=== PATIENT | male | born 1955 | race Caucasian/White ===

== ENCOUNTER 2018-01-08 19:59 | Emergency (ER) | payer BC, OTHER ==
[~2018-01-08] VITALS: Ht 170.2 cm; Wt 90.6 kg
[2018-01-08 20:02] VITALS: TEMP 36.9; Ht 170.2 cm; Wt 90.6 kg
--- NOTE | 2018-01-08 20:33 | EMERGENCY ROOM VISIT NOTE ---
ED Visit Note First contact with patient: 20:06 CHIEF COMPLAINT: Facial laceration HISTORY OF PRESENT ILLNESS: This 62-year-old male patient presents emergency department by private vehicle complaining of a laceration to the right forehead. Patient states that he was cleaning the kitchen floor when he stood up and struck his head on a light, states the glass shattered and cut him on the forehead. There was no loss of consciousness, vomiting, or unusual behavior afterwards. Denies neck pain. No headache, nausea, or blurred vision. There is minimal bleeding. The patient rates the pain as 0/10. The patient's tetanus shot is up to date. REVIEW OF SYSTEMS: A 6 system review of systems was completed with positives and pertinent negatives listed in the HPI. ALLERGIES: No known allergies. MEDICATIONS: No medications. PMH: No significant past medical or surgical history. SOCIAL HISTORY: Lives at home. He denies tobacco use. PHYSICAL EXAM: Vital Signs: Reviewed Nurse's notes, vital signs stable. GENERAL : Pleasant and cooperative, in no acute distress, well-developed, well- nourished. NEURO: The patient is alert and oriented to person place and time. No focal neurological defects. EYES: Pupils are round, equal, and react to light. EOMI. EARS: No hemotympanum. NECK: Supple. No cervical spine tenderness. FACE: No facial bone tenderness or mandibular tenderness. The mouth can open fully. The teeth are well aligned. No loose or chipped teeth. SKIN: There is a 1.5 cm laceration on the right forehead. The edges gape apart with traction. There is mild active bleeding. There is a small shard of glass noted in the wound. There are no deep structures present. Capillary refill less than two seconds. Normal sensation to light and sharp touch. EMERGENCY DEPARTMENT COURSE: I examined the patient. Verbal consent was obtained to perform the procedure. Using forceps, the shard of glass was easily removed from the wound, the wound was further explored and no other foreign body material was noted. Using sterile technique the wound was cleansed with Betadine. Patient was offered wound anesthesia prior to irrigation, he states the pain is tolerable and does not need any anesthesia. The wound was copiously irrigated under pressure with sterile saline. The wound was explored and was as described above. The wound edges approximate well and bleeding is easily controlled, therefore decision was made to close the laceration with Dermabond, applying 3 layers. The wound edges remained well approximated and hemostasis was achieved. The patient tolerated the procedure well. Patient was educated regarding wound care, follow-up, and return precautions, he verbalized understanding. The patient was discharged home in stable condition and ambulatory. Allergies Coded Allergies: No Known Allergies (Unverified Allergy, Mild, 12/03/05) Vital Signs Date Time Temp Pulse Resp B/P (MAP) Pulse Ox O2 Delivery O2 Flow Rate FiO2 01/08/18 20:41 56 18 136/83 98 Room Air 01/08/18 20:02 36.9 59 20 137/86 95 Room Air Departure Information Impression Primary Impression: Forehead laceration Dispostion Home / Self-Care Condition GOOD Patient Instructions ED Laceration Facial Skin Glue, [facility] [employer] [facility] Additional Instructions You were evaluated and treated in the emergency department for your head injury and facial laceration. The laceration was repaired using Dermabond (skin glue). The Dermabond should fall off naturally over the next 5-7 days. Do not pick at the glue, and do not apply ointments or lotions to the glue. You may wash over the area with soap and water, but do not scrub over the glued area. Pat dry after washing. Keep covered when in sun until the wound is fully healed, then SPF 50 or higher for one year. Vitamin E oil if desired two weeks after the glue has fallen off for reduction of scar. Please seek immediate medical attention for any signs of infection (increasing redness, swelling, pus drainage, streaking up the arm, fever/chills). Problem Qualifiers Primary Impression: Forehead laceration Encounter type: initial encounter Qualified Codes: S01.81XA - Laceration without foreign body of other part of head, initial encounter
[2018-01-08 20:41] VITALS: BP 136/83; PULSE 56; O2SAT 98
== END 2018-01-08 20:45 | disposition home or self-care (01) ==
LOC: C.EDB 20:00 → C.EDD 20:45
DX: S01.82XA Laceration with foreign body of other part of head, initial encounter (principal); W45.8XXA Other foreign body or object entering through skin, initial encounter; Y92.010 Kitchen of single-family (private) house as the place of occurrence of the external cause

== ENCOUNTER 2022-12-07 07:55 | Observation (INO) ==
--- NOTE | 2022-11-09 15:52 | PAT Medication Instructions ---
Medication Instructions Date of Service November 09, 2022 Home Medications allopurinol 100 mg tablet 100 mg PO QAM atenolol 50 mg tablet 50 mg PO QAM atorvastatin 20 mg tablet 20 mg PO QAM benazepril 40 mg tablet 40 mg PO QAM clonidine HCl 0.2 mg tablet 0.2 mg PO BID felodipine 10 mg tablet,extended release 24 hr 1 tab PO QAM glimepiride 1 mg tablet 1 mg PO QAM hydrochlorothiazide 25 mg tablet 25 mg PO BID metformin 500 mg tablet 500 mg PO BID sertraline 100 mg tablet 100 mg PO QAM DO NOT take the morning of surgery benazepril 40 mg tablet 40 mg PO QAM glimepiride 1 mg tablet 1 mg PO QAM hydrochlorothiazide 25 mg tablet 25 mg PO BID metformin 500 mg tablet 500 mg PO BID Take morning of surgery With a small sip of water, OTHERWISE NOTHING TO EAT OR DRINK AFTER MIDNIGHT: allopurinol 100 mg tablet 100 mg PO QAM atenolol 50 mg tablet 50 mg PO QAM atorvastatin 20 mg tablet 20 mg PO QAM clonidine HCl 0.2 mg tablet 0.2 mg PO BID felodipine 10 mg tablet,extended release 24 hr 1 tab PO QAM sertraline 100 mg tablet 100 mg PO QAM Take evening before surgery clonidine HCl 0.2 mg tablet 0.2 mg PO BID hydrochlorothiazide 25 mg tablet 25 mg PO BID metformin 500 mg tablet 500 mg PO BID Other Notes If you have any questions please call us at [phone] or [phone] or [phone] or [phone]
--- NOTE | 2022-11-10 14:12 | Anesthesiology Consultation ---
Date of Service November 10, 2022 Assessment & Plan (1) Encounter for pre-operative examination: - check BSG am DOS. - Case discussed in detail with Dr. Steward including pre-op EKG, he advised patient does not need further evaluation or testing prior to surgery from his standpoint. - Outpatient joint assessment: Patient is currently scheduled for inpatient pathway. If re-evaluated pending system levels during current pandemic/surgeon requests outpatient pathway, patient is not acceptable candidate for outpatient joint program from anesthesia standpoint. Pt and his express that they would rather pt remain overnight. Chart Review Chart Review: Acceptable Risk for Surgery and Patient seen in Pre Admission Testing Teaching & Discussion Pre-Anesthesia Teaching/Discussion Notes: Instructed NPO after midnight before surgery, except medications with 15 cc of water. Medication instructions provided according to the PAT guidelines. History Surgery Operation Date: 12/07/22 07:00 Proposed Procedures p Left Total Knee Arthroplasty - Michoacano Hamilton MD Height/Weight Height: 5 ft 7 in Weight: 88.8 kg Allergies Allergy/AdvReac Type Severity Reaction Status Date / Time No Known Allergies Allergy Mild Verified 11/09/22 14:28 Medications Home Medications Medication Instructions Recorded Confirmed Last Taken allopurinol 100 mg tablet 100 mg PO QAM 04/14/22 11/09/22 Unknown atenolol 50 mg tablet 50 mg PO QAM 04/14/22 11/09/22 Unknown atorvastatin 20 mg tablet 20 mg PO QAM 04/14/22 11/09/22 Unknown benazepril 40 mg tablet 40 mg PO QAM 04/14/22 11/09/22 Unknown clonidine HCl 0.2 mg tablet 0.2 mg PO BID 04/14/22 11/09/22 Unknown felodipine 10 mg tablet,extended 1 tab PO QAM 04/14/22 11/09/22 Unknown release 24 hr glimepiride 1 mg tablet 1 mg PO QAM 04/14/22 11/09/22 Unknown hydrochlorothiazide 25 mg tablet 25 mg PO BID 04/14/22 11/09/22 Unknown metformin 500 mg tablet 500 mg PO BID 04/14/22 11/09/22 Unknown sertraline 100 mg tablet 100 mg PO QAM 04/14/22 11/09/22 Unknown Past Medical History Medical History (Updated 11/10/22 @ 15:18 by Laura M. Onink, PA-C) Absence of kidney congenital CKD (chronic kidney disease) stage 3, GFR 30-59 ml/min Depression Hx of gout Hyperlipidemia Hypertension controlled, stable per pt Type 2 diabetes mellitus NIDDM Patient denies h/o stroke, seizures, heart attack, heart failure, blood clots or blood transfusions. Exercise / Class Metabolic Activity II 4-5 Yardwork/Stairs/Walk up hill (denies chest discomfort or shortness of breath with 1 FOS) Past Family History Family History Sister Skin cancer Other No family history of adverse response to anesthesia Past Surgical History Surgical History (Updated 11/10/22 @ 15:19 by Laura Arias PA-C) Hx of colonoscopy Past Anesthesia History No Hx of Anesthesia Complications and No Family Hx of Anesthesia Complications History of PONV No Hx of PONV and No Hx of Motion Sickness Social History Smoking Status: Former smoker Smoking cigarettes per day: quit 1-12 yrs ago Do You Dip or Chew Tobacco: No Hx Alcohol Use: No Hx Substance Use: No substance use type: does not use Review of Systems Snoring, denies witnessed apneas. Patient denies chest pain, shortness of breath, dyspnea on exertion, reflux, fever, chills, cough, wheezing, dizziness, lightheadedness, change in chronic fatigue, or palpitations. Physical Exam Vital Signs Vitals BP 142/81 P 47 TEMP 98.2 SP02 96% on RA RESP 18 Physical Full cervical extension range of motion without pain TMD 3.5 finger breadths Mallampati Score 3 Dentition: several caps/crowns and a bridge permanent left side; denies chipped or loose teeth Lungs: normal respiratory effort. Clear throughout to auscultation, no adventitious breath sounds Cardiac: regular rate and rhythm, no murmurs noted Carotid arteries: negative bruit bilat Lab Results Anesthesia Preop Results Results Anesthesia Widget: PT 11.0 Seconds (9.0-12.0) 11/10/22 PTT 29.2 Seconds (21.0-31.0) 11/10/22 INR 1.0 (0.9-1.1) 11/10/22 Blood Type O Positive 11/10/22 Antibody Screen NEGATIVE 11/10/22 Testing Laboratory Results 11/01/2022 WBC: 9.3 H/H: 1444 PLATELETS: 251 SODIUM: 145 POTASSIUM: 3.8 CHLORIDE: 106 CO2: 28 BUN: 28 CREATININE: 1.4 GLUCOSE: 109 A1c: 6.2% Electrocardiogram Date: 11/09/22 Sinus bradycardia, rate 52 bpm Septal infarct, age undetermined Nonspecific T wave abnormality Chest X-Ray Date: 11/10/22 Cardiomediastinal and hilar silhouettes are within normal limits. No pneumothorax, pleural effusion, airspace consolidation or pulmonary edema. Chronic appearing fracture of the posterior right seventh rib. IMPRESSION: No acute process. COVID-19 Risk Screen Screening Information COVID-19 Screen Date: 11/10/22 Exposure 21 Days Family/Household +COVID Last 21 Days: No Exposure 10 Days Any COVID Exposure Last 10 Days: No Symptoms Last 10 Days Experienced COVID Sx Last 10 Days: No + COVID 0-90 Days COVID + in Last 0-90 Days: No
[~2022-12-07 07:55] MED LIST: ACETAMINOPHEN 500 MG TAB PO SCH; BUPIVACAINE 0.5 % 5 MG/1 ML PF 10ML VIAL ONE; BUPIVACAINE LIPOSOME/PF 266 MG, BUPIVACAINE/EPINEPHRINE 50 ML, SODIUM CHLORIDE 0.9% PF ... INFIL SCH; CeleBREX 200 MG CAP PO SCH; EPINEPHrine INJ 1 MG/ML AMP ONE; FAMOTIDINE 20 MG TAB PO SCH; LR 500ML BOLUS, THEN 15ML/HR IV SCH; LR 60ML/HR IV SCH; METOCLOPRAMIDE HCL 10 MG TABLET PO SCH; ROPIVACAINE 0.5% 5 MG/ML 30 ML VIAL ONE; Scopolamine 1 MG TDSY TD SCH; TRANEXAMIC ACID 1,000 MG **IV Intra-op IV SCH; TRANEXAMIC ACID 1,000 MG **IV Pre-op IV SCH; ceFAZolin 2000MG 2,000 MG/15 ML SYR IV SCH
--- NOTE | 2022-12-07 09:03 | History & Physical Bridge Note ---
Date of Service December 07, 2022 History & Physical Bridge Note I have examined the patient, reviewed the History & Physical and in the interval since the performance of the History & Physical I have noted the following changes of clinical significance: no changes noted
[2022-12-07] MEDS ORDERED: MIDAZOLAM HCL 1 MG/ML 2ML VIAL ONE (09:52)
[2022-12-07] MEDS ORDERED: fentaNYL citrate PF 100 MCG/2 ML VIAL ONE (09:52)
[2022-12-07] MEDS ORDERED: BUPIVACAINE/EPINEPHRINE 0.25% 1:200,000 30 ML VIAL ONE (11:46)
[2022-12-07] MEDS ORDERED: BUPIVACAINE LIPOSOME 1.3% 266 MG/20 ML VIAL ONE (11:46)
[2022-12-07] MEDS ORDERED: SODIUM CHLORIDE 0.9% PF 50 ML VIAL ONE (11:46)
[2022-12-07] MEDS ORDERED: ePHEDrine sulfate 50 MG/ML SYR ONE (11:58)
[2022-12-07] MEDS ORDERED: PHENYLEPHRINE 100MCG/ML 5ML SYR ONE (11:58)
[2022-12-07] MEDS ORDERED: PROPOFOL IV EMULSION 10 MG/ML 20 ML VIAL IV ONE ×2 (11:58→12:52)
[2022-12-07] MEDS ORDERED: DEXAMETHASONE SOD INJ 4 MG/ML VIAL ONE (12:00)
[2022-12-07] MEDS ORDERED: KETAMINE 50 MG/5 ML SYRINGE ONE (12:05)
[2022-12-07] MEDS ORDERED: ePHEDrine sulfate 50 MG/ML AMP IV PRN (13:17)
[2022-12-07] MEDS ORDERED: ATROPINE SULFATE 0.1 MG/ML 10ML SYR IV PRN (13:17)
--- NOTE | 2022-12-07 13:37 | Operative Report ---
PG Post Operative Report Pre & Post Diagnosis Operation Date: 12/07/22 10:40 Pre-Op Diagnosis: Left Knee Degenerative Joint Disease Post-Op Diagnosis: Left Knee Degenerative Joint Disease I identified the patient and participated in the time-out.: Yes Procedure Operation Date: 12/07/22 10:40 Actual Procedures p Left Total Knee Arthroplasty(Left) - Michoacano Hamilton MD Surgeon Michoacano Hamilton MD Oncology Rep Ace Saul PA-C Estimated Blood Loss 100 Findings Consistent with Post-Op Diagnosis Operative findings revealed advanced tricompartmental left knee DJD. Extensive grade 4 [id number] disease in all 3 compartments most severe medially. He had a fixed apparent varus deformity to his knee with a flexion contracture of 10 to 15 degrees. He had a chronic ACL deficiency. Osteophytes in all 3 co mpartments. Moderate-sized joint effusion. Specimens Left knee sent for pathology Anesthesia Type Spinal MAC Complications none Indications Patient is a 66-year-old gentleman said a long history of progressive left knee pain discomfort is gradually gotten worse over time. Been to extensive conservative treatment which became less successful over time. X-rays show advanced left knee DJD. He elected proceed with surgical treatment. Description of Procedure Operative implants consist of: 1 Biomet Vanguard size 70 left posterior stabilized femoral component. 2. Biomet size 75 tibial tray. 3. 10 mm posterior stabilized polyethylene insert. 4. 31 x 8 all poly patella. The patient was taken to the operating, identified, and placed on the operating table supine position protectors were appropriately padded. IV antibiotics tried by anesthesia team. A spinal anesthetic and adductor canal block had provided in the holding area. A Ferrer cath was placed in sterile fashion. Left thigh turn was then placed in the left lower extremity then prepped and draped in usual sterile fashion. The left leg was elevated exsanguinated with use of an Esmarch and the tourniquet was placed at 300 mmHg. An anterior posterior left knee was then performed through a longitudinal incision centered over the patella. Sharp dissection was carried through subcutaneous tissues down the extensor mechanism. A medial Arthrotomy incision was made. Some subperiosteal dissection was carried out medially. The fat pad was resected from Neath patella tendon. Lateral patellofemoral ligament was released. Patella subluxated laterally knee was flexed. The osteophytes taken off distal femur. The ACL was absent. The PCL was released from distal femur and the tibia subluxated anteriorly. The external tibial alignment jig was then placed in the interface the tibia and adjusted 16 mm medially. Proximal tibial cut was made essentially flush with the most deficient aspect the medial tibial plateau. This did take a fairly large piece off laterally. The tibia sized to a size 75. Some osteophytes were taken off medial and posterior medially. Attention drawn the femur. The distal femur was then with a sharp drill. Intramedullary canal was suction. A left 6 degree valgus cutting guide was placed. Distal femoral cutting block was pinned in place. Distal femoral cut was made to take an additional 3 mm of bone off distal femur. The femur was then sized to a size 70. The AP cutting block was pinned parallel to the epicondylar axis which was 3 degrees of external rotation. The anterior cut, anterior chamfer, posterior cut, posterior chamfer cuts were made. The box cutting guide was placed in just slight lateral and the box cut was made. The knee was flexed. The remnants of the medial and lateral menisci were excised. The osteophytes were taken off the posterior aspect of femur. Trial femoral component was placed. Tibial tray was pinned in maximum external rotation and the drill and stem punch were used to create defect in proximal tibia for the tibial tray. Knee was then trialed and the 10 mm insert fit most appropriately. Attention drawn the patella. The patella was cleaned of all soft tissues. Patella thickness measured 22 mm in thickness and was cut down to 13. It was sized to a size 31 patella. The lug holes were drilled for the 31 patella. The lateral osteophytes removed. Patella button was placed. Knee was taken through range of motion and the patella tracked nicely with no thumbs test. Attention drawn to place the permanent components. Nupathe all trial components were removed. Bone plug was placed in the distal femur limit blood loss. Double batch Palacos G cement was mixed. Biomet Vanguard size 70 left posterior stabilized femoral component, size 75 tibial tray, a 10 mm posterior stabilized polyethylene insert, and a 31 x 8 all Paller patella then cemented in place. Knee was brought out into full extension till cement hardened. Final cement check was then performed. Pericapsular tissues were injected with a total of 100 cc of combination of 20 cc of Exparel, 30 cc normal saline, 50 cc of quarter percent Marcaine with epinephrine. Patient did receive 1 g tranexamic acid. The tourniquet was then let down for final tourniquet time of 58 minutes. Hemostasis assured with electrocautery. Extensor mechanism then closed with combination 1 PDS suture #1 Vicryl suture in a [id number] fashion. Extensor mechanism checked found to be intact. Subcutaneous tissue then closed with 2 Dexon suture in a buried interrupted fashion skin was closed skin christiano. Leg was then cleaned and dried and sterile dressed with Xeroform, 4 fours, sterile cast padding, Felix bandage were applied. Patient then transferred to the recovery room in stable condition. Patient tolerated the procedure well and there were no complications. Ace Saul, my physician mental health assistant, was present for the entire procedure. His assistance was essential and required for appropriate patient positioning, prepping and draping, surgical exposure, performing the technical details of the operation, placement the implants, closure of the wound, and placement of the sterile bandage. I attest to the content of the Intraoperative Record and any orders documented therein. Any exceptions are noted below.
--- NOTE | 2022-12-07 14:40 | Anesthesiology Progress Note ---
Date of Service December 07, 2022 Anesthesia Post Procedure Vital Signs Vital Signs: Temp Pulse Pulse Resp BP Pulse Ox O2 Del Method 12/07/22 14:35 70 15 121/78 91 Oxymask 12/07/22 13:55 78 16 115/71 95 Oxymask 12/07/22 14:25 71 13 117/77 91 Oxymask 12/07/22 14:15 36.4 C L 70 16 116/71 92 Oxymask 12/07/22 14:05 36.4 C L 75 14 113/69 94 Oxymask 12/07/22 13:45 81 18 108/68 94 Oxymask 12/07/22 13:38 36.3 C L 88 14 120/68 96 Oxymask 12/07/22 08:40 36.9 C 46 L 16 129/77 95 O2 Flow Rate 12/07/22 14:35 2 12/07/22 13:55 2 12/07/22 14:25 2 12/07/22 14:15 2 12/07/22 14:05 2 12/07/22 13:45 3 12/07/22 13:38 5 12/07/22 08:40 Pain Intensity Left Knee: Pain Intensity: 0 Transfer of Care Handoff Completed per policy Notes Mental Status: alert / awake / arousable Patient Amnestic to Procedure: Yes Nausea / Vomiting: adequately controlled Pain: adequately controlled Airway Patency, RR, SpO2: stable & adequate BP & HR: stable & adequate Hydration State: stable & adequate Neuraxial Anesthesia: was administered and sensory block is resolving Anesthetic Complications: no major complications apparent
[2022-12-07] MEDS ORDERED: bisacodyL 10 MG SUPP PR PRN (15:18)
[2022-12-07] MEDS ORDERED: GLUCOSE 10 TAB/TUBE PO PRN (15:18)
[2022-12-07] MEDS ORDERED: NALOXONE HCL 0.4 MG/1 ML VIAL/CARP IV PRN (15:18)
[2022-12-07] MEDS ORDERED: ALUMINUM/MAGNESIUM SUSP 30 ML UDC PO PRN (15:18)
[2022-12-07] MEDS ORDERED: HYDROmorphone INJ 0.5 MG/0.5 ML SYR IV PRN (15:18)
[2022-12-07] MEDS ORDERED: SODIUM CHLORIDE 0.9% 1000ML 1,000 ML IV SCH (15:18)
[2022-12-07] MEDS ORDERED: GLUCOSE 40% GEL 15 GM TUBE PO PRN (15:18)
[2022-12-07] MEDS ORDERED: PHARMACY GLYCEMIC MGMT CONSULT PRN (15:18)
[2022-12-07] MEDS ORDERED: GLUCAGON FOR INJ 1 MG VIAL SQ PRN (15:18)
[2022-12-07] MEDS ORDERED: ONDANSETRON INJ 2 MG/ML 2 ML VIAL IV PRN (15:18)
[2022-12-07] MEDS ORDERED: NO NSAIDS SCH (15:18)
[2022-12-07] MEDS ORDERED: oxyCODONE HCL IR 5 MG TAB (IMMEDIATE RELEASE) PO PRN (15:18)
[2022-12-07] MEDS ORDERED: DEXTROSE 50% 50 ML SYRINGE IV PRN (15:18)
[2022-12-07] MEDS ORDERED: MAGNESIUM HYDROXIDE SUSP 30 ML UDC PO PRN (15:18)
[2022-12-07] MEDS ORDERED: METOCLOPRAMIDE HCL INJ 5 MG/ML 2 ML VIAL IV PRN (15:18)
[2022-12-07] MEDS ORDERED: CARBOHYDRATES FOR HYPOGLYCEMIA PO PRN (15:18)
[2022-12-07] MEDS: ACETAMINOPHEN 500 MG TAB PO SCH ×2 (16:21→21:14)
[2022-12-07] MEDS: Scopolamine CHECK PATCH PLACEMENT SCH (16:23)
--- NOTE | 2022-12-07 16:55 | XRay Report ---
XR knee LT 1 or 2V routine CLINICAL HISTORY: Surgical Post Op TECHNIQUE: 2 views of the left knee were obtained. Comparison: Comparison is made to knee radiographs 05/26/2022 FINDINGS: Patient is status post total knee arthroplasty with expected postsurgical changes including soft tiss ue swelling and subcutaneous emphysema. No periarticular lucency or hardware fracture is seen. Joint spaces are well-preserved. No joint effusion is seen. No soft tissue abnormality is seen. IMPRESSION: Expected postoperative appearance status post placement of total knee arthroplasty. ACT 112: Negative or not required by law. Electronically signed by: Rm Fitzpatrick M.D. 12/07/2022 4:54 PM
[2022-12-07] MEDS: ASCORBIC ACID 500 MG TAB PO SCH (17:06)
[2022-12-07] MEDS: INSULIN ASPART PER UNIT CHARGE SC SCH ×2 (17:37→21:13)
[2022-12-07] MEDS: ceFAZolin 2000MG 2,000 MG/15 ML SYR IV SCH (19:09)
[2022-12-07] MEDS ORDERED: TRANEXAMIC ACID / 0.7% NACL 1,000 MG/100 ML BAG IV SCH (19:45)
[2022-12-07] MEDS ORDERED: SENNA 8.6 MG TAB PO SCH (21:00)
[2022-12-07] MEDS ORDERED: LANTUS PER UNIT CHARGE SQ SCH (21:00)
[2022-12-07] MEDS: ASPIRIN 81 MG ECTAB PO SCH (21:12)
[2022-12-07] MEDS: hydroCHLOROthiazide 25 MG TAB PO SCH (21:12)
[2022-12-07] MEDS: SENNA 8.6 MG TAB PO SCH (21:13)
[2022-12-07] MEDS: DOCUSATE SODIUM 100 MG CAP PO SCH (21:14)
[2022-12-07] MEDS: cloNIDine HCL 0.1 MG TAB PO SCH (21:14)
[2022-12-08] MEDS: Scopolamine CHECK PATCH PLACEMENT SCH ×2 (00:45→08:59)
[2022-12-08] MEDS: INSULIN ASPART PER UNIT CHARGE SC SCH ×3 (00:46→08:00)
[2022-12-08] MEDS: ceFAZolin 2000MG 2,000 MG/15 ML SYR IV SCH (03:55)
[2022-12-08 06:18] LABS: Hematocrit (blood only) 36.2 % (42.0-52.0); Hemoglobin 12.5 g/dl (14.0-18.0); Mean Corpuscular Hemoglobin 31.6 pg (25.0-34.0); Mean Corpuscular Hgb Conc 34.5 g/dL (32.0-36.0); Mean Corpuscular Volume 91.4 fL (80.0-100.0); Mean Platelet Volume 10.6 fL (9.4-12.4); Platelet Count 228 K/uL (130-400); RDW Coefficient of Variation 12.4 % (11.5-14.5); RDW Standard Deviation 41.3 fL (36.4-46.3); Red Blood Count 3.96 M/uL (4.70-6.10); White Blood Count 10.37 K/ul (4.8-10.8)
[2022-12-08 06:35] LABS: BUN Creatinine Ratio 19.6 (10-20); Calcium 8.8 mg/dl (8.6-10.3); Creatinine Clr Calc Pharmacy 56.7 ml/min; Est GFR (African American) 61.7 ml/min; Est GFR (Non-African American) 53.3 ml/min; Potassium 3.6 mmol/L (3.5-5.1)
--- NOTE | 2022-12-08 07:52 | Progress Notes ---
DATE OF SERVICE: 12/08/2022. SUBJECTIVE: A 66-year-old gentleman, postoperative day 1 from a left knee replacement. He is doing well. Pain is controlled. No chest pain or shortness of breath. Not feeling dizzy or lightheaded. OBJECTIVE: VITAL SIGNS: Temperature 36.8. Vital signs are stable. PHYSICAL EXAMINATION: GENERAL: Shows a pleasant middle-aged male. He is sitting up on his bedside chair, looks well, comf ortable. LUNGS: Clear to auscultation. HEART: Regular rate and rhythm. ABDOMEN: Soft, nontender, nondistended. EXTREMITIES: Grossly neurovascularly intact except as follows. Examination of the left leg reveals the dressing to be clean, dry and intact. He can dorsiflex and plantar flex his foot appropriately. He is neurologically intact. LABORATORY DATA: Hemoglobin 12.5, hematocrit 36.2. Electrolytes are stable. ASSESSMENT: A 66-year-old gentleman, postoperative day 1 from a left knee replacement, doing pretty well. Pain is controlled. He is neurologically intact. PLAN: 1. DVT prophylaxis includes thigh-high TEDs, SCDs, and aspirin twice a day. 2. PT, OT, weightbear as tolerated. Left total knee protocol. 3. Pain control, doing okay with current pain regimen. 4. Disposition: Plan is to discharge him to home with some home health likely later today if he sofia s okay in therapy. Job ID: [id number]
[2022-12-08] MEDS: SENNA 8.6 MG TAB PO SCH (08:51)
[2022-12-08] MEDS: DOCUSATE SODIUM 100 MG CAP PO SCH (08:51)
[2022-12-08] MEDS: cloNIDine HCL 0.1 MG TAB PO SCH (08:56)
[2022-12-08] MEDS: ACETAMINOPHEN 500 MG TAB PO SCH (08:57)
[2022-12-08] MEDS: ASCORBIC ACID 500 MG TAB PO SCH (08:57)
[2022-12-08] MEDS: hydroCHLOROthiazide 25 MG TAB PO SCH (08:57)
[2022-12-08] MEDS ORDERED: TAMSULOSIN HCL 0.4 MG CAP PO SCH (09:00)
[2022-12-08] MEDS ORDERED: ENALAPRIL MALEATE 10 MG TAB PO SCH (09:00)
[2022-12-08] MEDS ORDERED: ATENOLOL 50 MG TABLET PO SCH (09:00)
[2022-12-08] MEDS ORDERED: FELODIPINE 5 MG TABCR PO SCH (09:00)
[2022-12-08] MEDS ORDERED: ATORVASTATIN 20 MG TAB PO SCH (09:00)
[2022-12-08] MEDS ORDERED: GLIMEPIRIDE 2 MG TAB PO SCH (09:00)
[2022-12-08] MEDS ORDERED: SERTRALINE HCL 100 MG TABLET PO SCH (09:00)
[2022-12-08] MEDS ORDERED: MULTIVITAMIN TAB PO SCH (09:00)
[2022-12-08] MEDS ORDERED: allopurinoL 100 MG TAB PO SCH (09:00)
[2022-12-08] MEDS: ASPIRIN 81 MG ECTAB PO SCH (09:09)
--- NOTE | 2022-12-08 09:37 | Pharmacy Report ---
Pharmacy Glycemic Short Note 2 - Date of Service December 08, 2022 - Glycemic Short BSG Results (Last 24 hours): 12/07/22 12/07/22 12/07/22 13:42 17:06 20:44 Glucose POC Glucose 156 H 159 H 216 H 12/07/22 12/08/22 12/08/22 23:53 03:51 05:39 Glucose 123 H POC Glucose 136 H 113 H 12/08/22 06:38 Glucose POC Glucose 111 H OUTPATIENT ANTIDIABETIC REGIMEN: * Metformin 500 mg PO BIDM * Glimepiride 1 mg PO daily * HbA1c: 6.2% (11/01/22) ASSESSMENT: * 66 yo M admitted on 12/07/22 s/p L TKA. Pharmacy has been consulted to assist with inpatient glycemic management. Patient is a well controlled Type 2 diabetic as an outpatient. Please refer to outpatient regimen and most recent HbA1c above. * Ordered and tolerating a T2DM diet. Did receive 8 mg of IV dexamethasone intraoperatively which should wear off over the next 24 hours. BSGs yesterday were: [phone] mg/dL. Received 14 units of basal at bedtime last evening as well as 6 units total of bolus throughout the evening. * Fasting BSG was 111 mg/dL this AM. Will hold off on any further basal this morning. Likely will schedule a reduced dose of basal for bedtime again. No change to bolus parameters at this time. PLAN FOR INPATIENT GLYCEMIC CONTROL: * Hold outpatient oral diabetes medications * Basal insulin * Lantus 10 units SC HS * Bolus insulin * NovoLog per scale ACHS or Q6hrs while NPO * Goal Range: Low 120 mg/dL - High 160 mg/dL * Correction Factor: 30 mg/dL/unit * Nutritional / Prandial insulin per carb ratio of 1 unit per 10 grams CHO consumed
[2022-12-08] MEDS ORDERED: LANTUS PER UNIT CHARGE SQ SCH (21:00)
--- NOTE | 2022-12-15 07:50 | Discharge Summary ---
Date of Service December 15, 2022 Discharge Data Procedures Performed Operation Date: 12/07/22 10:40 Actual Procedures p Left Total Knee Arthroplasty(Left) - Michoacano Hamilton MD Hospital Course (1) Status post total left knee replacement: This is a 67 year old patient admitted on 12/07/22 and underwent total knee arthroplasty. He tolerated the procedure well and there were no complications. Transferred to the PACU post op and later to the orthopedic floor for further care. He was given ancef for antibiotic prophylaxis. He was also given ALICIA stockings, SCDs, and aspirin for DVT prophylaxis. Hemoglobin, hematocrit, and vital signs were monitored during his hospital stay and remained stable. Did not require any blood transfusions. There were no complications during his hospital stay. By post op day #1 the patient was tolerating a diabetic diet, pain was reasonably controlled with oral pain medicine, and he was participating in physical therapy. On post op day #1 the patient was discharged home and set up with home health care. He was given printed discharge instructions including prescriptions for extra strength tylenol, aspirin, cefadroxil, oxycodone, zofran, senokot, and flomax. Continue physical therapy, weight bearing as tolerated. Continue ALICIA stockings. Follow up approximately 2 weeks post op or sooner if there are problems or concerns. Coding Level of Care Code None Diagnoses Status post total left knee replacement Z96.652
== END 2022-12-08 10:46 | disposition home health service (06) ==
LOC: ASU 07:55 → 3E 07:55